=== PATIENT | male | born 1970 | race Caucasian/White ===

== ENCOUNTER 2016-12-07 15:49 | Emergency (ER) | payer BC ==
[~2016-12-07] VITALS: Ht 175.3 cm; Wt 90.8 kg
[2016-12-07 16:47] LABS: HEMATOCRIT 46.1 % (38.0-50.0); MCH 28.4 PG (29.0-34.0); MCHC 34.3 G/DL (30.0-36.0); MCV 82.9 FL (86-99); MEAN PLAT.VOLUME 9.7 uM^3 (9.0-12.4); PLATELET COUNT 162 K/uL (156-360); RBC DIS.WIDTH-CV 12.9 % (11.8-14.6); RBC DIS.WIDTH-SD 38.3 % (39-53); RED BLOOD COUNT 5.56 M/uL (4.00-5.50); WHITE BLOOD COUNT 7.3 K/uL (4.1-10.2)
[2016-12-07 16:58] LABS: CHLORIDE 105 mEq/L (99-109); POTASSIUM 3.9 mEq/L (3.7-5.4); SODIUM 137 mEq/L (136-147)
[2016-12-07 17:00] LABS: GLUCOSE 182 mg/dL (70-99)
[2016-12-07 17:01] LABS: ANION GAP 7 MEQ/L (2-14)
[2016-12-07 17:03] LABS: GFR ESTIMATE (CALCULATED) > 59 mL/min/
[2016-12-07 17:04] LABS: UREA NITROGEN (BUN) 13 mg/dL (9-23)
[2016-12-07 17:09] LABS: TROP-I INTERPRETATION NEGATIVE; TROPONIN-I < 0.01 ng/mL (0.0-0.30)
[2016-12-07 20:08] LABS: TROP-I INTERPRETATION NEGATIVE; TROPONIN-I < 0.01 ng/mL (0.0-0.30)
[2016-12-07 20:30] VITALS: BP 118/84
== END 2016-12-07 20:30 | disposition home or self-care (01) ==
LOC: EME 15:49
PROVIDERS: Physician Assistant
DX: R07.9 Chest pain, unspecified (principal); M54.2 Cervicalgia
CPT/HCPCS: 71020; 80048; 84484; 85027; 93005; 99281; 99284